=== PATIENT | male | born 1945 | race African-American/Black ===

== ENCOUNTER 2016-08-01 17:15 | Emergency (ER) | payer MEDICARE, MEDICAID ==
[~2016-08-01] VITALS: Ht 182.9 cm; Wt 87.5 kg
[~2016-08-01 17:15] MED LIST: AMLO-25 PO; ASPI81CH43 PO; CHOL100039 PO; CLON0.1T PO; Finasteride PO; HYDR25TA4 PO; LACT10SO PO; LORA-352 PO; RIVA15TA PO; RIVA20TA PO; SIMV5TAB38 PO; SUCR1TAB PO; TAMS0.4C36 PO
[2016-08-01 23:27] VITALS: BP 118/83
== END 2016-08-02 01:08 | disposition home or self-care (01) ==
LOC: ER 17:43
DX: S37.30XS Unspecified injury of urethra, sequela (principal); Z48.02 Encounter for removal of sutures; I10 Essential (primary) hypertension; I50.9 Heart failure, unspecified; E78.5 Hyperlipidemia, unspecified; I48.91 Unspecified atrial fibrillation; Z86.73 Personal history of transient ischemic attack (TIA), and cerebral infarction without residual deficits; Z87.891 Personal history of nicotine dependence; N40.0 Benign prostatic hyperplasia without lower urinary tract symptoms; R31.0 Gross hematuria; Z79.01 Long term (current) use of anticoagulants; Z79.82 Long term (current) use of aspirin; Z79.899 Other long term (current) drug therapy

== ENCOUNTER → 2016-09-02 | Outpatient (CLI) | payer MEDICARE, MEDICAID | END | disposition home or self-care (01) | LOC: LAB 10:21 | PROVIDERS: ATTEND Internal Medicine | DX: E55.9 Vitamin D deficiency, unspecified (principal); Z00.00 Encounter for general adult medical examination without abnormal findings | CPT/HCPCS: 82270 ==

== ENCOUNTER → 2016-12-23 | Outpatient (CLI) | payer MEDICARE, MEDICAID | END | disposition home or self-care (01) | LOC: LAB 13:45 | PROVIDERS: ATTEND Urology | DX: N40.1 Benign prostatic hyperplasia with lower urinary tract symptoms (principal); N35.011 Post-traumatic bulbous urethral stricture | CPT/HCPCS: 87086 ==